=== PATIENT | male | born 1970 | race Caucasian/White ===

== ENCOUNTER 2018-06-10 12:15 | Day surgery (SDC) | payer SELFPAY ==
[2018-06-10] VITALS (8 sets, daily range): BP systolic 117–129; BP diastolic 80–86; PULSE 63–71; TEMP 98.3
[~2018-06-10] VITALS: Ht 165.1 cm; Wt 89.1 kg
[2018-06-10 13:19] LABS: BASO % 0.3 % (0.0-2.0); EOS # 0.2 (0.0-0.7); EOS % 2.6 % (0-4.0); GRAN % 44.4 % (42.2-75.2); HEMOGLOBIN 15.3 g/dl (13.5-18.0); LYMPH % 44.8 % (20.0-51.0); MEAN CELL VOLUME 85 fl (80.0-100.0); MEAN CORPUSCULAR HEMOGLOBIN 29 pg (27.0-31.0); MEAN CORPUSCULAR HGB CONC 35 g/dl (33.0-37.0); MEAN PLATELET VOLUME 9.1 fl (7.4-10.4); MONO # 0.6 (0.1-0.6); MONO % 7.2 % (1.7-9.3); PLATELET COUNT 329 K/mm3 (130-400); RED BLOOD COUNT 5.21 M/mm3 (4.20-5.60); REDCELL DISTRIBUTION WIDTH-CV 12.5 % (11.5-14.5)
[2018-06-10 13:25] LABS: CALCIUM 9.4 mg/dL (8.4-10.2); CREATININE, serum 0.71 mg/dL (0.66-1.25); POTASSIUM 3.7 mmol/L (3.4-5.0)
--- NOTE | 2018-06-10 17:25 | NUR ---
Patient arrived to Surgical @ 1724 and is in room 342. He is currently drinking water at this time. I will have him order some food.
--- NOTE | 2018-06-10 18:12 | NUR ---
Patient resting in bed a this time with family by his side. Denies pain at this time. Drinking fluids well, Eating his pudding. He will use his call light once he needs to urinate. Will continue to monitor.
--- NOTE | 2018-06-10 19:30 | NUR ---
Patient up to the bathroom and urinates. Denies pain. LUE remains numb from block. Reviewed that once starts to have feeling or tingling in RUE/fingers to take norco for pain. Discharge instructions/norco all reviewed and given handouts on fx wrist and norco. Patient and significant other voice understanding. Reviewed rest, ice, elevant and to keep splint clean and dry and intact until followup visit. Patient to call ortho office for F/U appointment on tuesday. RUE pink, warm, with cap refill <3. Awaiting completed Doctors orders. Encouraged significant other to get RX filled at pharmacy at this time in case closes prior to patient discharge. Significant other then left for pharmacy with RX. Boiling Off Winder Janna GUPTA working on completed discharge orders.
--- NOTE | 2018-06-10 21:00 | NUR ---
Significant other back from pharmacy. [facility] are closed after 6pm on Tuesday. Color Paste Mixer Janna GUPTA notified patient unable to get pain RX filled and she called bat person [facility] pharmacy for dispensing of norco to patient yelena.
--- NOTE | 2018-06-10 21:49 | NUR ---
Maintainer Operator Janna GUPTA dispensed 4 tablets of norco 7.5/325 to patient with instructions. Patient to get original RX filled at [facility] pharmacy tomorrow am. Discharge instructions signed by patient. Reviewed to take discharge summary with him to F/U appointment. IV DC'd without problems. Catheter tip intact. Patient discharged to POV via wheelchair and transfers without problems to passenger seat. Patient discharged home with significant other.
== END 2018-06-10 21:49 | disposition home or self-care (01) ==
LOC: COL.ER 12:15 → SDCO 14:41 → SURG 14:46 → SDCO 21:49
PROVIDERS: Emergency Medicine
DX: S52.552A Other extraarticular fracture of lower end of left radius, initial encounter for closed fracture (principal); W18.30XD Fall on same level, unspecified, subsequent encounter
CPT/HCPCS: OP; C1713; J0690; J1885; J2250; J2270; J2405; J2704; J2795; J3010

== ENCOUNTER → 2021-07-06 | Outpatient (CLI) | payer SELFPAY | LOC: COL.RAD 08:20 | DX: M62.838 Other muscle spasm (principal) ==